=== PATIENT | female | born 1970 | race Caucasian/White ===

== ENCOUNTER 2025-02-21 20:49 | Emergency (ER) | payer BC ==
[2025-02-21] MEDS: Dexamethasone 10 MG/ML SDV IM ONE (21:07)
== END 2025-02-21 21:13 | disposition home or self-care (01) ==
LOC: VM.ED 20:49
DX: T63.441A Toxic effect of venom of bees, accidental (unintentional), initial encounter (principal); Z88.8 Allergy status to other drugs, medicaments and biological substances; Z91.030 Bee allergy status
CPT/HCPCS: 96372; 99283; J1100